=== PATIENT | male | born 1990 | race Two or more races ===

== ENCOUNTER 2019-09-09 01:06 | Emergency (ER) | payer SELFPAY ==
[~2019-09-09] VITALS: Ht 170.2 cm; Wt 95.5 kg
[~2019-09-09 01:06] MED LIST: NOCURR
[2019-09-09] MEDS ORDERED: KETOROLAC TROMETHAMINE 30 MG/ML VIAL IVP ONE (04:00)
[2019-09-09] MEDS ORDERED: KETOROLAC TROMETHAMINE 30 MG/ML VIAL IM ONE (04:15)
[2019-09-09 06:10] VITALS: BP 141/90
== END 2019-09-09 06:12 | disposition home or self-care (01) ==
LOC: EMS 01:06
DX: S40.212A Abrasion of left shoulder, initial encounter (principal); V43.52XA Car driver injured in collision with other type car in traffic accident, initial encounter; Y93.89 Activity, other specified; Y92.89 Other specified places as the place of occurrence of the external cause; Y99.8 Other external cause status
CPT/HCPCS: 71101; 73030; 96372; 99283; J1885